=== PATIENT | female | born 1970 | race Caucasian/White ===

== ENCOUNTER 2017-12-02 16:17 | Observation (INO) | payer SELFPAY ==
[2017-12-02 16:56] LABS: #Basophils 0.1 thou/uL (0.0-0.2); #Eosinphils 0.1 thou/uL (0.0-0.7); #Lymphocytes 2.3 thou/uL (1.20-3.40); #Monocytes 0.4 thou/uL (0.11-0.59); #Neutrophils 4.2 thou/uL (1.40-6.50); %Basophils 0.9 % (0.0-1.0); %Eosinophils 1.3 % (0.0-10.0); %Lymphocytes 32.2 % (21.0-51.0); %Monocytes 6.1 % (0.0-10.0); %Neutrophils 59.5 % (42.0-75.0); Hemoglobin 13.8 g/dL (12.0-16.0); Mean Corpuscular HGB CONC 34.3 g/dL (32.0-36.0); Mean Corpuscular Volume 93.4 fL (78.0-98.0); Mean Platelet Volume 9.5 fL (7.4-10.4); Platelet Count 152 thou/uL (130-400); RBC Distribution Width 12.9 % (11.5-14.5); Red Blood Cell (RBC) Count 4.32 mill/uL (4.20-5.40)
[2017-12-02 17:19] LABS: ALT (SGPT) 13 U/L (8-55); AST (SGOT) 17 U/L (5-34); Alkaline Phosphatase 88 U/L (40-150); Anion Gap 10 mmol/L (10-20); BUN (Urea Nitrogen) 17 mg/dL (7.0-18.7); Bilirubin, Total 0.3 mg/dL (0.2-1.2); CK (CPK) 59 U/L (29-168); Calc. Creatinine Clearance 0 mL/min (70-130); Calcium 9.4 mg/dL (7.8-10.44); Carbon Dioxide 28 mmol/L (22-29); Chloride 103 mmol/L (98-107); Estimated GFR-MDRD 84; Globulin 2.6 g/dL (2.4-3.5); Glucose 102 mg/dL (70-105); Potassium 3.3 mmol/L (3.5-5.1); Protein, Total 6.6 g/dL (6.0-8.3); Sodium 138 mmol/L (136-145)
[2017-12-02 17:24] LABS: CKMB 0.6 ng/mL (0-6.6); Troponin I Less than 0.010 ng/mL (< 0.028)
--- NOTE | 2017-12-02 19:00 | RAD ---
RADIOGRAPH CHEST 1 VIEW: HISTORY: 47-year-old female with chest pain. FINDINGS: There are no air space densities, pulmonary edema, pneumothorax, or cardiomegaly. The lateral costop hrenic angles are sharp. IMPRESSION: No acute cardiopulmonary findings. [place] POS: [facility]
--- NOTE | 2017-12-02 19:23 | CT ---
CT ANGIOGRAM OF THE HEAD WITH AND WITHOUT CONTRAST CT ANGIOGRAM OF THE NECK WITH CONTRAST: DATE: 12-02-2017 History: 47-year-old female with dizziness, status post fall resulting in head trauma. Facial droop. Nausea an d vomiting. Technique: Noncontrast brain CT performed. Next, IV injection of 100 ml of Isovue 370. Arterial bolus chasing technique scan performed from aortopulmonic window to vertex of head. Sagittal and coronal 3D MIP reconstructions. FINDINGS: The ventricles are normal in size and configuration. No calvarial fracture. No intracranial mass effe ct, midline shift, extraaxial fluid collection, or CT evidence of large cortical infarction. The para nasal sinuses and the bilateral tympanomastoid cavities, are grossly clear. The anterior and posterio r circulation major arteries of the [place] are normal, with no evidence of occlusion or hig h grade stenosis. No atherosclerotic calcified plaque in the carotid siphons or elsewhere. Left lobe of the thyroid gland is absent. Bilateral vertebral, bilateral common carotid, bilateral internal carotid, left subclavian, and brach iocephalic, arteries are normal. No aneurysm or dissection of the aortic arch. Much of the right subc lavian artery is obscured by streak artifact from adjacent dense contrast material in the right subcl golden vein. No atherosclerotic calcified plaque is visualized in any of these arteries, including car otid bulbs. IMPRESSION: 1. Status post left thyroid lobectomy. 2. Otherwise normal. POS: [facility]
[2017-12-02 19:58] LABS: Cocaine Metabolite Screen Not Detected (NotDetected); Medtox Reader # READER 4; Methamphetamine Detected (NotDetected); Phencyclidine (PCP) Not Detected (NotDetected); THC/Cannabinoid Screen Not Detected (NotDetected)
[2017-12-02 19:59] LABS: Amphetamine Detected (NotDetected); Barbiturates Screen Not Detected (NotDetected); Benzodiazepine Screen Not Detected (NotDetected); Medtox Control Line Valid? VALID (VALID); Methadone Not Detected (NotDetected); Opiate Screen Not Detected (NotDetected); Oxycodone Screen Not Detected (NotDetected); Tricyclic Screen Not Detected (NotDetected)
[2017-12-02] MEDS ORDERED: Ondansetron HCl/PF 4 MG/2 ML Vial IVP PRN (20:06)
[2017-12-02] MEDS ORDERED: Acetaminophen 325 MG TAB PO PRN (20:06)
[2017-12-02] MEDS ORDERED: hydrALAZINE 20 MG/ML VIAL SLOW IVP PRN (20:09)
[2017-12-02 21:34] VITALS: BMI 23.4
[2017-12-02] MEDS ORDERED: Nitroglycerin 4.9 GM Bottle SL PRN (23:00)
[2017-12-02 23:33] LABS: Troponin I Less than 0.010 ng/mL (< 0.028)
[2017-12-03 04:11] LABS: #Eosinphils 0.1 thou/uL (0.0-0.7); #Lymphocytes 2.9 thou/uL (1.20-3.40); #Monocytes 0.5 thou/uL (0.11-0.59); #Neutrophils 4.5 thou/uL (1.40-6.50); %Basophils 0.6 % (0.0-1.0); %Eosinophils 1.6 % (0.0-10.0); %Lymphocytes 35.5 % (21.0-51.0); %Monocytes 6.6 % (0.0-10.0); %Neutrophils 55.7 % (42.0-75.0); Hemoglobin 14.1 g/dL (12.0-16.0); Mean Corpuscular HGB CONC 33.7 g/dL (32.0-36.0); Mean Corpuscular Hemoglobin 31.5 pg (27.0-31.0); Mean Corpuscular Volume 93.5 fL (78.0-98.0); Mean Platelet Volume 10.1 fL (7.4-10.4); Platelet Count 136 thou/uL (130-400); RBC Distribution Width 12.9 % (11.5-14.5); Red Blood Cell (RBC) Count 4.48 mill/uL (4.20-5.40); White Blood Cell (WBC) Count 8.1 thou/uL (4.8-10.8)
[2017-12-03 04:24] LABS: Anion Gap 14 mmol/L (10-20); BUN (Urea Nitrogen) 13 mg/dL (7.0-18.7); Calc. Creatinine Clearance 100 mL/min (70-130); Calcium 9.5 mg/dL (7.8-10.44); Carbon Dioxide 22 mmol/L (22-29); Cardiac Risk 3.8 (Less than 4.5); Chloride 106 mmol/L (98-107); Cholesterol 168 mg/dl (< 200 Desired); Estimated GFR-MDRD Greater than 90; Glucose 90 mg/dL (70-105); HDL Cholesterol 44 mg/dL (>60 Neg Risk); LDL Cholesterol, Calculated 105 mg/dL; Potassium 3.3 mmol/L (3.5-5.1); Sodium 139 mmol/L (136-145); Triglycerides 93 mg/dL (Less than 150)
--- NOTE | 2017-12-03 05:35 | HP ---
PRIMARY CARE PHYSICIAN: The patient has no PCP. CODE STATUS: FULL CODE. TIME OF EVALUATION: 7:40 p.m. CHIEF COMPLAINT: Left-sided weakness and dizziness. HISTORY OF PRESENT ILLNESS: This is a 47-year-old female patient with past medical history of H. pyl diego, thyroid disease, asthma, CAD, kidney stones, came to the hospital after having left-sided weakne ss with dizziness, feeling lightheaded. The patient reported that these symptoms have been present f or the past week, she has some slurred speech, most notable since yesterday. She reported that she h ad difficulty finding words. There is no fever, no chills, no chest pain or shortness of breath. REVIEW OF SYSTEMS: Constitutional: No fever or chills or generalized weakness. Respiratory: No co ugh, sputum production or shortness of breath. Cardiovascular: No chest pain, palpitation. Gastroi ntestinal: No nausea, vomiting, diarrhea or abdominal pain. RN HEDIS: The patient has left-sided weakne ss, slurred speech, feeling lightheaded. Genitourinary: No burning with urination. Extremities: N o leg swelling. All other systems were reviewed and are negative except for the findings mentioned a jennifer. PAST MEDICAL HISTORY: Mentioned in the HPI. SOCIAL HISTORY: Patient drinks socially every week. No drug use. No tobacco use. Smokes cigarette s daily, smoker of a pack per day. PSYCHIATRIC HISTORY: Bipolar disorder. FAMILY HISTORY: Reviewed and noncontributory for current presentation. ALLERGIES: No seasonal allergies. Allergies to MORPHINE. MEDICATIONS: Nexium and Zantac. PHYSICAL EXAMINATION: VITAL SIGNS: On presentation, blood pressure 127/87 with heart rate 88, respiratory rate 16, tempera ture 98.7, pain was 6/10, saturation 100 on room air. GENERAL APPEARANCE: Patient was alert, oriented, not in any acute distress. HEENT: Eyes, normal conjunctivae. Moist oral mucosa. Anicteric. NECK: No JVD. RESPIRATORY: Bilateral air entry. No rales, no wheezing. Symmetric expansion. CARDIOVASCULAR: Normal rate, regular rhythm. No murmurs, no gallop, no edema. ABDOMEN: Soft, normal bowel sounds. MUSCULOSKELETAL: Baseline range of motion and strength. No tenderness. SKIN: Warm and intact. No pain, no rash, no redness. Peripheral pulses are present. Capillary ref ill seems to be intact. NEUROLOGIC: The patient has left-sided reportedly weakness, on the physical exam patient has s lurred speech. Cranial nerves sensory intact otherwise. PSYCHIATRIC: Good mood. No anxiety, oriented, optimal judgement. RADIOLOGIC DATA: The EKG as discussed with the performing physician from ER, patient has incomplete RBBB with left anterior fascicular block, normal sinus rhythm with a rate of 82. CT angio of the nec k with no acute findings, no dissection. Chest x-ray was negative. LABORATORY DATA: The patient has a white count of 7, hemoglobin 13.8, platelet count 152. Sodium 13 8, potassium 3.3, chloride 103, carbon dioxide 28, anion gap 10, BUN 17, creatinine 0.7. Troponin wa s negative x2. The patient had positive amphetamine and methamphetamine. ASSESSMENT AND PLAN: The patient will be placed in the hospital with the following medical problem: 1. Neurological symptoms reportedly left-sided weakness. The patient was placed in observation. We will rule out a TIA versus stroke, this could be related to amphetamine and methamphetamine use. 2. Positive for amphetamines and methamphetamines, patient denies using any drugs. Advised to stop using drugs. 3. Hypokalemia. Potassium 3.3. This is mild, we will reconcile. We will replace electrolytes as n eeded. 4. Deep venous thrombosis prophylaxis. 5. History of coronary artery disease. Troponins are negative, we will monitor on tele.
[2017-12-03] MEDS ORDERED: Aspirin 325 mg Enteric Coated Tablet PO SCH (09:00)
[2017-12-03] MEDS ORDERED: Famotidine 20 MG TAB PO SCH (09:00)
[2017-12-03] MEDS ORDERED: Enoxaparin Sodium 40 MG/0.4 ML SYRINGE SC SCH (09:00)
[2017-12-03 11:57] VITALS: BP 93/56; TEMP 98.4
--- NOTE | 2017-12-03 15:24 | MRI ---
MRI OF THE BRAIN WITHOUT CONTRAST: INDICATION: History of TIA. COMPARISON: Prior CTA of the brain dated 12/02/17. FINDINGS: No restricted diffusion is seen to suggest the presence of acute ischemia. The signal in the brain s een on the T2 weighted images, gradient echo images, and FLAIR images appears within normal limits. The brain appears within normal limits on the T1 weighted sagittal series. Septum pellucidum and thi rd ventricle are midline. There are appropriate flow voids within the major intracranial vessels. T he skull and extracranial soft tissues appear within normal limits. IMPRESSION: No acute intracranial abnormality. POS: [facility]
[2017-12-03] MEDS ORDERED: Potassium Chloride 20 MEQ TAB PO SCH (17:45)
--- NOTE | 2017-12-03 18:07 | CON ---
DATE OF CONSULTATION: 12/03/2017 CONSULTING PHYSICIAN: Hospital Service. IMPRESSION: 1. Syncopal episode, likely secondary to some hypotension 1 week ago. 2. Jaw soreness. 3. Chronic neck and lower back pain. 4. Positive drug screen for methamphetamine. PLAN: The patient can be discharged home. Ms. Sommers is a 47-year-old white female who came in due to reports that her family thought that her f darren was a bit droopy. She reports that she was trying to hang a curtain about a week ago and had los t consciousness briefly or at least fell and was injured. She has had some residual facial pain on t he left side since the accident. She has felt a bit lightheaded intermittently, but denies any other syncopal episode. She has not had any seizures came into the hospital for evaluation. Initial CT s can of the brain was unremarkable. Serial CT angio was also unremarkable. She had an MRI of the bra in, which was again was unremarkable. She denies any illicit drug use despite the findings on the dr ug screen, reports it is probably a cross reactivity . PAST MEDICAL HISTORY: Chronic neck and lower back pain. FAMILY HISTORY: Noncontributory. SOCIAL HISTORY: Positive for tobacco use. ALLERGIES: MORPHINE. REVIEW OF SYSTEMS: Otherwise, negative. PHYSICAL EXAMINATION: VITAL SIGNS: Blood pressure 93/56, pulse 81, respirations 18, temperature 98.4. HEENT: The patient reports tenderness to movement of the left TMJ and left facial region. No light to touch. No facial swelling was noted. Pupils are equal and reactive. Conjunctivae are clear. NECK: Supple. EXTREMITIES: No cyanosis. NEUROLOGIC: She is alert and cooperative. Her speech is fluent and clear. She seemed to have a bit of embellishment going on with her exam. Cranial nerves II-XII are intact. Motor exam showed symme tric strength without fix or drift. Sensation was intact to light touch. She can walk independently . No abnormal movements were seen. MRI of the brain images were reviewed and were unremarkable. EKG shows a normal sinus rhythm with possible left atrial enlargement. LABORATORY STUDIES: Otherwise, normal CBC and serum chemistry other than a potassium of 3.3. SUMMARY: A middle-aged woman with syncopal episode and minor injury to her face. I do not see any a cute neurologic issues. She can be discharged home.
--- NOTE | 2017-12-03 19:26 | DIS ---
PRIMARY CARE PROVIDER: None. DATE OF ADMISSION: 12/02/2017 DATE OF DISCHARGE: 12/03/2017 DISCHARGE DIAGNOSIS: Left-sided weakness. CONDITION OF PATIENT ON THE DAY OF DISCHARGE: Stable. I assessed Ms. Sommers on the day of discharge. She reports feeling better. Vital signs are stable. S1 and S2 are heard, regular. Lungs are gildardo r to auscultation bilaterally. Neurologic examination is nonfocal. CONSULTATIONS DURING THIS HOSPITALIZATION: Neurology, Dr. Harrell. DISCHARGE MEDICATIONS: Nitrospray p.r.n., Nexium 40 mg daily, ranitidine 450 mg daily. HOSPITAL COURSE: Ms. Sommers is a pleasant 47-year-old lady, who was admitted to [facility] on 12/02/2017 for left-sided weakness. At the time of admission, she also had a urine d rug screen that was positive for amphetamines and methamphetamines. She had a CT angiogram of [place] and neck, which did not show any significant vascular abnormalities. She is status post l eft thyroid lobectomy. She also had MRI of the brain, which did not show any significant intracrania l abnormality. A 2D echocardiogram showed left ventricular ejection fraction of 55% to 60%, normal s ized left atrium, normal left ventricular size, mild mitral regurgitation, and no thrombus noted in t he cardiac chambers. She was seen by Neurology Service and cleared for discharge. She is being discharged home in a stabl e condition. On the day of discharge, she has an unremarkable CBC. Sodium 139, potassium 3.3, which is being repl aced, creatinine 0.67 and fasting lipid profile showing triglycerides 93, cholesterol 168, LDL choles terol 105, and HDL cholesterol 44. DISCHARGE DESTINATION: Home.
[2017-12-04] MEDS ORDERED: Aspirin 81 mg Enteric Coated Tablet PO SCH (09:00)
--- NOTE | 2017-12-06 12:18 | CT ---
CT ANGIOGRAM OF THE HEAD WITH AND WITHOUT CONTRAST CT ANGIOGRAM OF THE NECK WITH CONTRAST: DATE: 12-02-2017 History: 47-year-old female with dizziness, status post fall resulting in head trauma. Facial droop. Nausea an d vomiting. Technique: Noncontrast brain CT performed. Next, IV injection of 100 ml of Isovue 370. Arterial bolus chasing technique scan performed from aortopulmonic window to vertex of head. Sagittal and coronal 3D MIP reconstructions. FINDINGS: The ventricles are normal in size and configuration. No calvarial fracture. No intracranial mass effe ct, midline shift, extraaxial fluid collection, or CT evidence of large cortical infarction. The para nasal sinuses and the bilateral tympanomastoid cavities, are grossly clear. The anterior and posterio r circulation major arteries of the [place] are normal, with no evidence of occlusion or hig h grade stenosis. No atherosclerotic calcified plaque in the carotid siphons or elsewhere. Left lobe of the thyroid gland is absent. Bilateral vertebral, bilateral common carotid, bilateral internal carotid, left subclavian, and brach iocephalic, arteries are normal. No aneurysm or dissection of the aortic arch. Much of the right subc lavian artery is obscured by streak artifact from adjacent dense contrast material in the right subcl golden vein. No atherosclerotic calcified plaque is visualized in any of these arteries, including car otid bulbs. IMPRESSION: 1. Status post left thyroid lobectomy. 2. Otherwise normal.
== END 2017-12-03 18:59 | disposition home or self-care (01) ==
LOC: ERS 16:17 → 2SW 18:23
PROVIDERS: ADMIT Internal Medicine; ATTEND Internal Medicine
DX: R53.1 Weakness (principal); R42 Dizziness and giddiness; E07.9 Disorder of thyroid, unspecified; J45.909 Unspecified asthma, uncomplicated; I25.10 Atherosclerotic heart disease of native coronary artery without angina pectoris; E87.6 Hypokalemia; G89.29 Other chronic pain; M54.2 Cervicalgia; M54.5 Low back pain; Z79.899 Other long term (current) drug therapy; Z88.5 Allergy status to narcotic agent
CPT/HCPCS: 36415; 70496; 70498; 70551; 71045; 80048; 80053; 80061; 80306; 82553; 83880; 84484; 85025; 93005; 93306; 94760; 96372; G0378; J1650

== ENCOUNTER 2018-02-05 20:08 | Emergency (ER) | payer SELFPAY ==
[2018-02-05] MEDS ORDERED: Acetaminophen 500 MG TAB ONE (20:47)
[2018-02-05] MEDS ORDERED: Ketorolac Tromethamine 60 MG/2 ML VIAL ONE (21:45)
--- NOTE | 2018-02-05 21:46 | RAD ---
RIGHT HUMERUS TWO VIEWS: 02/05/18 INDICATION: Fall with right arm pain. COMPARISON: None. IMPRESSION: No acute fracture or subluxation is evident. Soft tissues are normal appearing. The visualized right lung is clear. POS: [facility]
--- NOTE | 2018-02-05 21:54 | RAD ---
RIGHT WRIST THREE VIEWS: 02/05/18 INDICATION: Right wrist pain after fall. COMPARISON: None. FINDINGS: No acute fracture or subluxation is evident. Carpal alignment appears within normal limits. IMPRESSION: No acute osseous abnormality. POS: [facility]
--- NOTE | 2018-02-05 22:27 | CT ---
CT OF THE BRAIN WITHOUT CONTRAST: 02/05/18 INDICATION: Fall with head injury. COMPARISON: Prior MR of the brain dated 12/03/17. FINDINGS: No acute infarct, hemorrhage or hydrocephalus is present. Septum pellucidum and third ventricle are m idline. Mastoid air cells and visualized paranasal sinuses are clear. No acute osseous abnormality is evident. IMPRESSION: No acute cardiopulmonary abnormality. POS: [facility]
--- NOTE | 2018-02-05 22:32 | CT ---
CT CERVICAL SPINE WITHOUT CONTRAST: 02/05/18 INDICATION: Fall with neck pain. COMPARISON: Prior exam dated 11/06/12. FINDINGS: There is posterior midline fusion defect of C1. No acute fracture or subluxation is evident. There is mild parenchymal scarring involving both lung apices which is similar appearing. There is post surgi julito change of a left thyroidectomy. IMPRESSION: No acute osseous abnormality. POS: [facility]
== END 2018-02-05 22:10 | disposition home or self-care (01) ==
LOC: SCSER 20:08
DX: M25.531 Pain in right wrist (principal); I25.10 Atherosclerotic heart disease of native coronary artery without angina pectoris; F17.210 Nicotine dependence, cigarettes, uncomplicated; F31.9 Bipolar disorder, unspecified; J45.909 Unspecified asthma, uncomplicated; Z87.442 Personal history of urinary calculi; Z79.899 Other long term (current) drug therapy; Y04.8XXA Assault by other bodily force, initial encounter
CPT/HCPCS: 70450; 72125; 93005; 96372; J1885